=== PATIENT | female | born 2000 | race Caucasian/White ===

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

== ENCOUNTER 2022-01-15 13:48 | Outpatient (REF) | payer OTHER, SELFPAY ==
[2022-01-15 14:00] LABS: MANUAL DIFF FLAG NO
[2022-01-15 14:13] LABS: Basophils Percent Auto 0.6 % (0-2); Eosinophils Percent Auto 0.3 % (0-4); Hematocrit 35.8 % (37.0-47.0); Hemoglobin 11.1 g/dl (12.0-16.0); Imm Gran Abs Auto 0.02 X10*3/uL (0.00-0.03); Imm Gran Pct Auto 0.3 % (0.0-0.4); Lymphocytes Absolute Auto 2.1 X10*3/uL (1.2-4.9); Lymphocytes Percent Auto 33.1 % (20-40); Mean Corpuscular Volume 83.8 fL (80.0-98.0); Mean Platelet Volume 9.7 fL (9.4-12.3); Monocytes Absolute Auto 0.6 X10*3/uL (0.1-1.2); Monocytes Percent Auto 9.4 % (2-11); Neutrophils Absolute Auto 3.6 x10*3/uL (2.0-8.3); Neutrophils Percent Auto 56.3 % (45-73); Platelet Count 296 X10*3/uL (160-400); Red Blood Count 4.27 X10*6/uL (4.20-5.50); Red Cell Distribution Width 14.1 % (11.0-16.0); White Blood Count 6.4 X10*3/uL (4.8-10.8)
[2022-01-15 14:37] LABS: Anion Gap 9 (12-20); Blood Urea Nitrogen 8 mg/dL (9-16); Calcium 9.7 mg/dL (8.4-10.2); Carbon Dioxide 27 mmol/L (22-29); Chloride 107 mmol/L (96-108); Estimated Glomerular Filt Rate > 60; Glucose Random 86 mg/dL (60-115); Potassium 4.2 mmol/L (3.3-5.1); Sodium 139 mmol/L (135-145)
[2022-01-16 13:10] LABS: Iron 67 mcg/dL (30-160)
[2022-01-16 13:36] LABS: Percent Iron Saturation 15 % (15-50); Total Iron Binding Capacity 456 mcg/dL (228-428); Unsaturated Iron Binding 389 ug/dL
[2022-01-16 13:55] LABS: Ferritin 9 ng/mL (10-122)
== END 2022-01-15 13:49 | disposition home or self-care (01) ==
LOC: HO.LAB 13:48
PROVIDERS: PCP Physician Assistant; Visit Provider Physician Assistant
DX: R53.83 Other fatigue (principal)
CPT/HCPCS: 36415; 80048; 82728; 83540; 85025

== ENCOUNTER 2023-07-19 21:02 | Emergency (ER) | payer SELFPAY ==
[2023-07-19 21:31] VITALS: BP 131/63; PULSE 86; RESP 18; TEMP 37.1; O2SAT 100; BMI 20.6
== END 2023-07-19 23:53 | disposition left against medical advice (07) ==
LOC: HO.ED 23:50
PROVIDERS: Emergency Provider Emergency Medicine
DX: R20.0 Anesthesia of skin (principal); Z53.21 Procedure and treatment not carried out due to patient leaving prior to being seen by health care provider; R11.0 Nausea
CPT/HCPCS: 99281

== ENCOUNTER 2024-04-06 07:56 | Outpatient (AMB) | payer OTHER, SELFPAY ==
--- NOTE | 2024-04-06 08:01 | MHC.PC.OV ---
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 Psych: We did discuss her mild depression and anxiety screening and she states that those symptoms are much more mild than they have been in the past. She can cope and does not want treatment or need to talk with anyone. She wonders if part of the depression symptoms are related to just fatigue that she gets from her anemia. She has never been hospitalized for anxiety or depression. No SI/HI. Heme: She has a history of iron-deficiency anemia and takes an pymu-ywm-yczdqyd iron supplement. She states that her periods have gotten a lot better since starting control pills. She still feels tired without the iron supplements. Client Services Representative: does not have one and would like to see someone. She is sexually active and on ocps. She does not always use condoms. Reports one partner and no STD sx. 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 Family hx: maternal aunt had breast ca, neg BRCA testing [facility] Medical History (Updated 04/06/24 @ 08:39 by April Li PA-C) Seizures Surgical History (Updated 04/06/24 @ 08:09 by Lillian Martin CMA) History of mandibular surgery Family History Mother No problems noted. 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 1. Little interest or pleasure in doing things: not at all 2. Feeling down, depressed, or hopeless: several days 3. Trouble falling or staying asleep, or sleeping too much: several days 4. Feeling tired or having little energy: several days 5. Poor appetite or overeating: several days 6. Feeling bad about yourself - or that you are a failure or have let yourself or your family down: several days 7. Trouble concentrating on things, such as reading the newspaper or watching television: not at all 8. Moving or speaking so slowly that other people could have noticed. Or the opposite - being so fidgety or restless that you have been moving around a lot more than usual: not at all 9. Thoughts that you would be better off or of hurting yourself in some way: not at all Total score: 5 Depression Screening Interpretation: Positive Depression Screening Follow-up: Existing condition and Declines treatment Depression Screening Done: Yes 57378 - PHQ-9 Billing: Yes Source: Developed by Drs. Yayo Hebert, Eliana Liriano, Adrián Munson and colleagues, with an educational cathy from [employer]. Thrive Questionnaire Date Thrive assessed: 04/06/24 I am a: Patient Within the past 12 months, did the food you bought not last and you didn't have the money to get more?: Never true Within the past 12 months, did you worry whether your food would run out before you got money to buy more?: Never true Do you have trouble paying for medicines?: No Do you have trouble getting transportation to medical appointments?: No Do you have trouble paying your heating and electricity bill?: No Do you have trouble taking care of your child, family member or friend?: No Do you have trouble with day-to-day activities such as bathing, preparing meals, shopping, managing finances, etc.?: No Are you currently unemployed and looking for a job?: No Are you interested in more education?: No Please select the resources that you would like help with: None Currently or been in a relationship where the following occur: no concerns reported THRIVE Score: 0 AUDIT C Alcohol Use Questionnaire (AUDIT-C) 1. How often do you have a drink containing alcohol?: Monthly or less 2. How many drinks containing alcohol do you have on a typical day when you are drinking?: 1 or 2 3. How often do you have six or more drinks on one occasion?: Never Total Score: 1 MELECIO-7 AMB Questionnaire MELECIO-7 Date MELECIO - 7 assessed: 04/06/24 Feeling nervous, anxious, or on edge: 1 = Several days Not being able to stop or control worryin = Several days Worrying too much about different things: 1 = Several days Trouble relaxin = Several days Being so restless that it is hard to sit still: 1 = Several days Becoming easily annoyed or irritable: 0 = Not at all Feeling afraid as if something awful might happen: 0 = Not at all Total MELECIO-7 score (0-4 normal; 5-9 mild; 10-14 moderate; 15-21 severe): 5 Source: Developed by Drs. Yayo Hebert, Eliana Liriano, Adrián Munson and colleagues, with an educational cathy from [employer]. MELECIO-7 Assessment Billing MELECIO-7 Assessment Tool: MELECIO-7 Assessment 92523 Physical exam (Primary Care) Vital Signs: Last Vital Signs Temp 98.8 F 04/06/24 08:03 Pulse 76 04/06/24 08:03 Resp 12 04/06/24 08:03 BP 114/54 L 04/06/24 08:03 Pulse Ox 100 04/06/24 08:03 Oxygen Delivery Method Room Air 04/06/24 08:03 BMI result Body Mass Index 21.0 Tobacco/Smoking Status: Tobacco use Status Tobacco use date assessed 04/06/24 04/06/24 08:11 Patient Tobacco Use Status Never used Tobacco 04/06/24 08:11 e-Cigarette/Vaping Use Never Used 04/06/24 08:11 PHQ-9: PHQ-9 Score PHQ-9: Total score 5 04/06/24 08:11 Depression Screening Interpretation: Positive Depression Screening Follow-up: Existing condition and Declines treatment Thrive Assessment: Date of Thrive Assessment Date Thrive assessed 04/06/24 04/06/24 08:11 Currently or been in a relationship where the following occur: no concerns reported Const Orientation/consciousness: patient oriented x3 HENMT Ears: hearing grossly normal bilaterally and TM's normal bilaterally General nose exam: No nasal polyps present Face and sinus: Yes sinuses nontender Mouth: Normal oral and palatal mucosa present Eyes Pupils: Equal, round and reactive pupils present EOM: EOMs intact bilaterally Neck Neck: Yes full ROM and Yes no lymphadenopathy Thyroid: Thyroid normal Chest Chest palpation & inspection: normal inspection of the chest Resp Auscultation: clear to auscultation bilaterally Cardio Rate: regular rate Rhythm: regular rhythm Heart sounds: S1 normal heart sound present and S2 normal heart sound present Peripheral pulses: Peripheral pulses 2+ throughout GI Other: Soft, nontender Auscultation: normal bowel sounds Rectal Exam - Female: deferred General: Yes no CVA tenderness Back/Spine/Pelvis Other: Nontender Back: no CVA tenderness Skin General skin exam: no rashes or lesions noted Neuro General: patient oriented x3, gait normal, CN's II-XI intact bilaterally and deep tendon reflexes 2+ bilaterally Cranial nerves: Yes Equal, round and reactive pupils present Motor exam (neuro): 5/5 motor strength present throughout Sensory Exam: double simultaneous stimulation for sensation normal Coordination: ikvmgk-bh-meot test normal and Romberg test negative Extrem General: Yes normal to inspection and Yes full ROM Psych Affect: normal affect Attitude: cooperative Thought process: Normal thought process present Thought content: Normal thought content present Insight: Good insight present (Psych) Judgement: Good judgement present (Psych) Assessment and Plan Assessment & Plan (1) Routine general medical examination at a health care facility: Code(s): Z00.00 - Encounter for general adult medical examination without abnormal findings Plan: Health maintenance reviewed. Labs ordered. STD testing ordered per her request. Referral to senior teradata developer. (2) Iron deficiency anemia: Code(s): D50.9 - Iron deficiency anemia, unspecified Qualifiers: Iron deficiency anemia type: chronic blood loss Qualified Code(s): D50.0 - Iron deficiency anemia secondary to blood loss (chronic) Plan: We will check CBC and iron. Orders: Orders Lipid Panel Today D50.9 - Iron deficiency anemia, unspecified, Z00.00 - Encounter for general adult medical examination without abnormal findings TSH reflex Free T4 Today D50.9 - Iron deficiency anemia, unspecified, Z00.00 - Encounter for general adult medical examination without abnormal findings Vitamin B12 and Folate Today D50.9 - Iron deficiency anemia, unspecified, R53.83 - Other fatigue Hepatitis C Antibody Today Z11.3 - Encounter for screening for infections with a predominantly sexual mode of transmission Syphilis Screen Today Z11.3 - Encounter for screening for infections with a predominantly sexual mode of transmission Complete Blood Count Auto Diff Today D50.9 - Iron deficiency anemia, unspecified, Z00.00 - Encounter for general adult medical examination without abnormal findings Comprehensive Riley. Panel Fast Today D50.9 - Iron deficiency anemia, unspecified, Z00.00 - Encounter for general adult medical examination without abnormal findings IRON PROFILE Today D50.9 - Iron deficiency anemia, unspecified, Z00.00 - Encounter for general adult medical examination without abnormal findings Ferritin Today D50.9 - Iron deficiency anemia, unspecified, Z00.00 - Encounter for general adult medical examination without abnormal findings HIV Ab/Ag Today Z11.3 - Encounter for screening for infections with a predominantly sexual mode of transmission CT NG by PCR Today Z11.3 - Encounter for screening for infections with a predominantly sexual mode of transmission Referrals [facility] Referral Z01.419 - Encounter for gynecological examination (general) (routine) without abnormal findings Coding Level of Care Code New Pt Prev Care 18-39yr(14222 Diagnoses Routine general medical examination at a health care facility Z00.00 Iron deficiency anemia due to chronic blood loss D50.0 Iron deficiency anemia type: chronic blood loss Additional Codes MELECIO-7 Assessment Billing - MELECIO-7 Assessment Tool: MELECIO-7 Assessment 37191 ([id number])
[2024-04-06 08:03] VITALS: BP 114/54; PULSE 76; RESP 12; TEMP 37.1; O2SAT 100; BMI 21.0
== END 2024-04-06 09:16 | disposition home or self-care (01) ==
PROVIDERS: Visit Provider Physician Assistant
DX: Z00.00 Encounter for general adult medical examination without abnormal findings (principal); D50.0 Iron deficiency anemia secondary to blood loss (chronic)
CPT/HCPCS: 99385

== ENCOUNTER 2024-04-06 09:20 | Outpatient (REF) | payer OTHER, SELFPAY ==
[2024-04-06 11:22] LABS: MANUAL DIFF FLAG NO
[2024-04-06 11:34] LABS: Basophils Percent Auto 0.4 % (0-2); Eosinophils Absolute Auto 0.1 X10*3/uL (0.0-0.4); Hematocrit 40.2 % (37.0-47.0); Hemoglobin 13.5 g/dl (12.0-16.0); Imm Gran Abs Auto 0.03 X10*3/uL (0.00-0.03); Imm Gran Pct Auto 0.6 % (0.0-0.4); Lymphocytes Absolute Auto 1.8 X10*3/uL (1.2-4.9); Mean Corpuscular HGB Conc 33.6 g/dl (31.0-35.0); Mean Corpuscular Hemoglobin 30.7 pg (27.0-33.0); Mean Corpuscular Volume 91.4 fL (80.0-98.0); Mean Platelet Volume 9.9 fL (9.4-12.3); Monocytes Absolute Auto 0.4 X10*3/uL (0.1-1.2); Monocytes Percent Auto 8.5 % (2-11); Neutrophils Absolute Auto 2.5 x10*3/uL (2.0-8.3); Neutrophils Percent Auto 52.5 % (45-73); Platelet Count 282 X10*3/uL (160-400); Red Cell Distribution Width 11.9 % (11.0-16.0); White Blood Count 4.8 X10*3/uL (4.8-10.8)
[2024-04-06 12:14] LABS: Alanine Aminotransferase 15 U/L (0-31); Albumin Level 4.3 g/dL (3.5-5.0); Alkaline Phosphatase 68 U/L (39-117); Anion Gap 16 (12-20); Aspartate Amino Transferase 16 U/L (5-31); Bilirubin Total 0.6 mg/dL (0.0-1.0); Blood Urea Nitrogen 11 mg/dL (9-16); Calcium 9.6 mg/dL (8.4-10.2); Carbon Dioxide 25 mmol/L (22-29); Chloride 106 mmol/L (96-108); Cholesterol 154 mg/dL (<200); Estimated Glomerular Filt Rate > 60; Glucose Fasting 83 mg/dL (60-99); HDL Cholesterol 59 mg/dL (>40); Iron 107 mcg/dL (30-160); LDL Cholesterol Calculated 72 mg/dL (<100); Percent Iron Saturation 29 % (15-50); Potassium 3.9 mmol/L (3.3-5.1); Sodium 143 mmol/L (135-145); Total Iron Binding Capacity 370 mcg/dL (228-428); Total Protein 7.5 g/dL (6.5-8.0); Triglycerides 119 mg/dL (<150); Unsaturated Iron Binding 263 ug/dL
[2024-04-06 12:34] LABS: HIV AB/AG Nonreactive (Nonreactive); HIV Num 1 0.04 S/CO (0.00-0.99); ~HepC Num1 0.17 S/CO (0.00-0.79); ~Hepatitis C Antibody Nonreactive (Nonreactive)
[2024-04-06 12:35] LABS: Syphilis Screen Nonreactive (Nonreactive)
[2024-04-06 12:36] LABS: Ferritin 38 ng/mL (10-122); TSH reflex Free T4 2.44 uIU/mL (0.32-4.0)
[2024-04-06 12:41] LABS: Folate > 20.0 ng/mL (> or = 4.0); Vitamin B12 363 pg/mL (200-900)
[2024-04-06 13:20] LABS: CT PCR NOT DETECTED (Not Detect.); NG PCR NOT DETECTED (Not Detect.)
== END 2024-04-06 09:21 | disposition home or self-care (01) ==
LOC: HO.WFDLDS 09:20
PROVIDERS: Visit Provider Physician Assistant
DX: Z00.00 Encounter for general adult medical examination without abnormal findings (principal); D50.9 Iron deficiency anemia, unspecified; R53.83 Other fatigue; Z11.3 Encounter for screening for infections with a predominantly sexual mode of transmission
CPT/HCPCS: 0353U; 36415; 80053; 80061; 82607; 82728; 82746; 83540; 84443; 85025; 86780; 86803; 87389

== ENCOUNTER 2025-01-04 09:49 | Outpatient (AMB) | payer OTHER, SELFPAY ==
--- NOTE | 2025-01-04 10:01 | A.OFFPC_ITS ---
Vital Signs 01/04/25 10:06 Height 5 ft 0.25 in Weight 135 lb 8 oz BMI 26.2 BP 110/70 Blood Pressure Location Rt brachial Position Sitting Respiration 12 Pulse 102 H Pulse Source Pulse Oximeter Temp 98.3 F Temp Source Oral Pulse Oximetry (%) 99 Oxygen Delivery Method Room Air Intake Visit Reasons: Headaches, Weezing Intake Note: Headaches started a month ago. Stopped control beginning of December because it was causing migraines. sxs improved after stopping, but is still having migraines. No wheezing. Social Sciences Chair Required: No Allergies No Known Allergies Allergy (Verified 01/04/25 10:05) Medication List - Last Reconciled 01/04/25 by April Li PA-C No Known Home Meds Tobacco use date assessed: 04/06/24 Dental Screening Dental Screen Date: 04/06/24 HPI Headaches, Weezing HPI Details History of Present Illness The patient is a 24-year-old female presenting with headaches. She reports that her migraines began after starting a new control patch early in December, which was changed due to persistent bleeding from previous contraceptive methods (Depo-Provera and oral contraceptives). Initially, there were no issues when st arting the patch, but severe migraines began thereafter, described as debilitating frontal headaches that prevented daily activities. The migraines were alleviated after the removal of the patch, yet lingering headaches persisted, notably on the right side and described as scalp tenderness. the pain does seem like it comes from the neck and goes up. 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 Her last eye exam was about a year ago. She does wear glasses in his due for this. Has been well hydrated and eating regularly. She denies any new supplements or other known triggers of the headaches. The headache does not wake her up from sleep. She says it starts as the day goes on. It has been almost every day for the last few weeks and this is the part that is making her very nervous. The patient denies any visual disturbances or balance issues but experiences nausea described as acid reflux unrelated to the headaches. She also reported p rior numbness in the arms and face, which resolved after removing the patch. An emergency department visit two weeks ago yielded no significant findings, only blood work with no results communicated to the patient. She expresses anxiety about the relation between her contraceptive use and the onset of symptoms. Additionally, the patient has a personal history of seizures, with the last episode occurring in high school, for which she had an MRI revealing potential continued risks of seizure. Health Maintenance - Recommendation to maintain adequate hy dration and a balanced diet, including continued iron supplementation for iron deficiency anemia. - Suggestion of physical therapy to addr ess potential musculoskeletal contributions to headache symptoms. - Potential evaluation via a brain MRI d ue to the patient's history of seizures and new onset of headaches. Social History - Works in an office environment. 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 - Reports stress and anxiety related to health issues. Review of Systems - Neurological: Denies vision changes, d izziness, or muscle weakness. Reports past migraines and current tension headaches. - Gastrointestinal: Reports nausea descr ibed as acid reflux. - Musculoskeletal: Denies changes in act ivities or balance issues. - General: Reports episodes of numbness in arms/face previously resolved. Physical Exam General: Well developed, well nourished, in no acute distress. Appears stated age. Cardiac: RRR, no murmurs Lungs: clear, equal breath sounds Abdomen: soft, nontender, no CVA tenderness Extremities: no edema Neck: Cervical paraspinous muscle tenderness present bilaterally, right worse than left. There is scalp tenderness noted on the right in the temporal area. She also has a muscle spasm noted in the right trapezius. Neuro: alert, oriented x3, mood appropriate. No vision changes. No weakness in extremities. No balance issues. Neurologically intact. Cranial nerves 2-12 grossly intact. Negative predde-jt-uaui, heel-to-toe and Romberg test. Strength 5/5 throughout. DTRs intact. Sensation intact. Plan - Tension Headache: Recommend physical t herapy to alleviate muscle tension and correct posture. Advise on muscle relaxation techniques and ergonomic adjustments. Consider ibuprofen as needed for symptomatic relief. - Iron Deficiency Anemia: Continue daily iron supplementation and ensure regular monitoring of hemoglobin levels. - Seizure Disorder History): Due to the history of seizures and new headache complaints, a brain MRI is advisable to rule out any intracranial pathology. - General: Discuss importance of continu ed management of anxiety related to health concerns and monitor the impact of lifestyle changes on headache symptoms. [facility] Medical History (Updated 01/04/25 @ 10:35 by April Li PA-C) Seizures Surgical History History of mandibular surgery Family History Mother No problems noted. 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 1. Little interest or pleasure in doing things: not at all 2. Feeling down, depressed, or hopeless: not at all 3. Trouble falling or staying asleep, or sleeping too much: several days 4. Feeling tired or having little energy: several days 5. Poor appetite or overeating: several days 6. Feeling bad about yourself - or that you are a failure or have let yourself or your family down: not at all 7. Trouble concentrating on things, such as reading the newspaper or watching television: not at all 8. Moving or speaking so slowly that other people could have noticed. Or the opposite - being so fidgety or restless that you have been moving around a lot more than usual: not at all 9. Thoughts that you would be better off or of hurting yourself in some way: not at all Total score: 3 Depression Screening Interpretation: Positive Depression Screening Done: Yes 19681 - PHQ-9 Billing: Yes Source: Developed by Drs. Yayo Hebert, Eliana Liriano, Adrián Munson and colleagues, with an educational cathy from [employer] Thrive Questionnaire Date Thrive assessed: 01/04/25 I am a: Patient What is your living situation today?: I have a steady place to live Within the past 12 months, did the food you bought not last and you didn't have the money to get more?: Never true Within the past 12 months, did you worry whether your food would run out before you got money to buy more?: Never true Do you have trouble paying for medicines?: No Do you have trouble getting transportation to medical appointments?: Yes Do you have trouble paying your heating and electricity bill?: No Do you have trouble taking care of your child, family member or friend?: No Do you have trouble with day-to-day activities such as bathing, preparing meals, shopping, managing finances, etc.?: No Are you currently unemployed and looking for a job?: No Are you interested in more education?: Yes Please select the resources that you would like help with: None Currently or been in a relationship where the following occur: No concerns repor tom THRIVE Score: 1 AUDIT C Alcohol Use Questionnaire (AUDIT-C) 1. How often do you have a drink containing alcohol?: Never Total Score: 0 MELECIO-7 AMB Questionnaire MELECIO-7 Date MELECIO - 7 assessed: 01/04/25 Feeling nervous, anxious, or on edge: 1 = Several days Not being able to stop or control worryin = Several days Worrying too much about different things: 1 = Several days Trouble relaxin = Not at all Being so restless that it is hard to sit still: 0 = Not at all Becoming easily annoyed or irritable: 0 = Not at all Feeling afraid as if something awful might happen: 0 = Not at all Total MELECIO-7 score (0-4 normal; 5-9 mild; 10-14 moderate; 15-21 severe): 3 Source: Developed by Drs. Yayo Hebert, Eliana Liriano, Adrián Munson and colleagues, with an educational cathy from [employer] MELECIO-7 Assessment Billing MELECIO-7 Assessment Tool: MELECIO-7 Assessment 95251 Physical exam (Primary Care) Vital Signs: Last Vital Signs Temp 98.3 F 01/04/25 10:06 Pulse 102 H 01/04/25 10:06 Resp 12 01/04/25 10:06 BP 110/70 01/04/25 10:06 Pulse Ox 99 01/04/25 10:06 Oxygen Delivery Method Room Air 01/04/25 10:06 BMI result Body Mass Index 26.2 Tobacco/Smoking Status: Tobacco use Status Tobacco use date assessed 04/06/24 01/04/25 10:09 Patient Tobacco Use Status Never used Tobacco 01/04/25 10:09 e-Cigarette/Vaping Use Never Used 01/04/25 10:09 PHQ-9: PHQ-9 Score PHQ-9: Total score 3 01/04/25 10:25 Depression Screening Interpretation: Positive Thrive Assessment: Date of Thrive Assessment Date Thrive assessed 01/04/25 01/04/25 10:09 Currently or been in a relationship where the following occur: No concerns reported Coding Level of Care Code Est Pt Level 4 (54592) Complex EM visit Add On G2211 Diagnoses No history of major surgery within 1 month Z78.9 Tension headache G44.209 Additional Codes MELECIO-7 Assessment Billing - MELECIO-7 Assessment Tool: MELECIO-7 Assessment 42311 ([id number]) PHQ-9 - 66455 - PHQ-9 Billing: Yes ([id number]) Assessment & Plan Assessment & Plan (1) No history of major surgery within 1 month: Code(s): Z78.9 - Other specified health status (2) Tension headache: Code(s): G44.209 - Tension-type headache, unspecified, not intractable Category: Medical Plan . Orders: Orders MR head/brain wo con Today R51.9 - Headache, unspecified PT Evaluation and Treatment Today G44.209 - Tension-type headache, unspecified, not intractable
[2025-01-04 10:06] VITALS: BP 110/70; PULSE 102; RESP 12; TEMP 36.8; O2SAT 99; BMI 26.2
== END 2025-01-04 10:37 | disposition home or self-care (01) ==
PROVIDERS: PCP Physician Assistant; Visit Provider Physician Assistant
DX: Z78.9 Other specified health status (principal); G44.209 Tension-type headache, unspecified, not intractable

== ENCOUNTER → 2025-01-04 09:49 | Outpatient (BNVA) | payer OTHER, SELFPAY | PROVIDERS: PCP Physician Assistant; Visit Provider Physician Assistant | DX: G44.209 Tension-type headache, unspecified, not intractable (principal); Z78.9 Other specified health status | CPT/HCPCS: 96127; 99212 ==

== ENCOUNTER 2025-04-09 12:57 | Outpatient (RCR) | payer OTHER, SELFPAY ==
--- NOTE | 2025-04-10 11:45 | MHC.PT.EP ---
[facility] [place] [facility] [place] [facility] [place] [facility] [address] Thomas Andrews [address] [phone] F: [phone] F: [phone] F: [phone] F: [phone] Physical Therapy Plan of Care Date of Evaluation: 04/09/25 Date of Surgery: Diagnosis: Cervicalgia/tension headaches (2) Tension headache: Code(s): G44.209 - Tension-type headache, unspecified, not intractable Category: Medical Plan . Orders: Orders MR head/brain wo con Today R51.9 - Headache, unspecified PT Evaluation and Treatment Today G44.209 - Tension-type headache, unspecified, not intractable Documented By:April Li01/04/25 1001 Assessment: Pt is a RHD 24 y/o female, referred to PT back on 01/04/25, : (2) Tension headache: Code(s): G44.209 - Tension-type headache, unspecified, not intractable Category: Medical Plan MR head/brain wo con Today R51.9 - Headache, unspecified PT Evaluation and Treatment Today G44.209 - Tension-type headache, unspecified, not intractable Documented By:April Li01/04/25 1001 Pt was seen for PT eval on 04/09/25. Notes in record indicate patient was NS for brain MRI on 01/10/25 at [facility] [place]. 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 Denies seizure activity since high school. Notes R UR and R cervical tension worse than R. Pt exhibits posterior cervical mm tension, reports weekly episodes of heaviness weakness bilateral UE parathesias (weakness in shoulder flexion/abd noted R>L) and report of daily headaches. Due to history of patient having a history of seizures and ongoing headache sx she would likely benefit from consultation and/referral to reestablish care with a neurologist. She notes missing her brain MRI which was scheduled back on 01/10/25 due to report of having to work on the day it was scheduled. In terms of attending therapy, it appears patient would have difficulty working time for therapy around work schedule (has booked only one appt at this time following initial evaluation). She was agreeable to attend PT for a few visits to establish a HEP. Post initial evaluation we discussed and she was issued an ergonomic handout to help with work set-up to reduce stressors on her C/S. She was educated re: benefit of a standing desk, educated re: iso scap squeezes, pectoralis stretching, and use of a lumbar roll. She was educated in the therapist recommendation to speak with her PCP about reestablishing care with a neurologist due to hx of seizures/migraine/headache sx. Therapist asked for the delay with her booking an appt in (referral was placed in 01/02, pt seen for PT eval on 04/09/25. Pt states she waited for [place] office to open (01/30). Patient's work schedule for patient does appear to be a factor (same hours as PT office). Pt will benefit from attending skilled PT services at a frequency of 1x/week x 3-4 weeks to be implemented on a home program, gym program, and education to reduce sx. Due to history of heaviness, proximal, bilateral UE weakness at a frequency occurring >1x/ more than once a week lasting sometimes 5-10 minutes, obtaining imaging of the C/S xray>MRI of CS may also be of benefit. Frequency and Duration: The patient will be seen 1x/week x 3-4 weeks Short Term Goals: 1. Initiate self care/HEP program for neck care. 2. Educate re: proper ergonomic set-up for computer/office work. 3. Increase strength R shoulder abd to 5/5. 4. Centralize R UE paratheias sx to height of C/S. 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 I HEP. 2. Reduce frequency of headache sx from daily to less than 1x/week. 3. Pt will demonstrate joint protection for C/S in regard to gym equipment and education given from therapist. 4. Good body mechanics and lifting 3:3 trials. Treatment Plan: Modalities to reduce pain, spasms and effusion. Manual therapy to restore motion and function. Therapeutic exercise to improve strength and flexibility. Neuromuscular re-education for posture and balance. Therapeutic activities to return to functional activities of daily living. Electronically signed by: Florencia Orozco PT, DPT Please sign and return to therapist. Thank you for your referral.
== END 2025-05-29 07:22 | disposition home or self-care (01) ==
LOC: HO.PTS 12:57
PROVIDERS: Visit Provider Physician Assistant
DX: G44.209 Tension-type headache, unspecified, not intractable (principal); M54.2 Cervicalgia
CPT/HCPCS: 97110; 97161